=== PATIENT | female | born 1960 | race Caucasian/White ===

== ENCOUNTER 2016-11-22 04:07 | Emergency (ER) | payer BC ==
--- NOTE | ~2016-11-22 | ER ---
PATIENT'S NAME: PRO OLIVER [facility] AGE: 56 Y [address] ROOM: [place] [address] LOCATION: [facility] ADMIT DATE: 11/22/2016 ER/Outpatient Report DISCHARGE DATE: 11/22/2016 FAMILY PHYSICIAN: PHYSICIAN, NO ATTENDING PHYSICIAN: Abhijeet Trujillo Admission date and time documented on the medical record. I saw the patient at 0415 hours. CHIEF COMPLAINT: Left shoulder pain. HISTORY OF PRESENT ILLNESS: This patient is a 56-year-old female, who around 2100 hours last night developed severe pain in her left shoulder. It was anterior, lateral, posterior shoulder radiating up into the trapezius muscle distribution of the neck and the inner aspect of her left scapula. The patient does have a history of fibromyalgia. She does not know what triggered this or stimulated this pain. No sternal or anterior chest pain. No shortness of breath. No diaphoresis. No lightheadedness, dizziness, syncope, or near syncope. No known trauma or fall. No headache or eyes, ears, nose, throat pain. No recent cold, coughs, flus, fever, chills, or sweats. No abdominal pain, nausea, vomiting, or diarrhea. No urinary symptoms. No skin eruptions or rash. No history of neuro changes, psych issues, or endocrine problems. HOME MEDICATIONS: None. ALLERGIES: NONE. SOCIAL HISTORY: Nonsmoker. Occasional intake of alcohol. SIGNIFICANT PAST MEDICAL HISTORY: Fibromyalgia. OPERATIONS: and laparoscopy. REVIEW OF SYSTEMS: All systems reviewed by me are negative with exception of those discussed in the history of the present illness. PHYSICAL EXAMINATION: PATIENT'S NAME: PRO OLIVER [facility] AGE: 56 Y [address] ROOM: [place] [address] LOCATION: [facility] ADMIT DATE: 11/22/2016 ER/Outpatient Report DISCHARGE DATE: 11/22/2016 FAMILY PHYSICIAN: PHYSICIAN, NO ATTENDING PHYSICIAN: Abhijeet Trujillo VITAL SIGNS: Pulse 82 and regular, respirations 18, blood pressure 121/64, O2 saturation on room air is 94%. HEAD: Normocephalic. EYES, EARS, NOSE, THROAT: Clear. Mucous membranes moist. Teeth: Jaw intact. NECK: The patient has some tenderness over the lateral neck involving the trapezius muscle distribution that goes down in the inner aspect of her left scapula. LUNGS: Clear. Good air flow. No rales, rhonchi, or wheezes. HEART: Regular. Pulses palpable. No chest wall or rib cage pain to palpation. ABDOMEN: Soft, nondistended, and nontender. Good bowel tones. No organomegaly or abnormal mass palpable. EXTREMITIES: No peripheral edema or cyanosis. She does have some tenderness on the anterior left shoulder deltoid area and in the posterior scapular area to palpation along with the trapezius muscle distribution. NEUROVASCULAR: Intact. SKIN: Clear. No skin eruptions or rash. LABORATORY DATA: White count was 8500, 59 segs, 33 lymphs, 6 monos, 2 eos; hemoglobin was 12.6; hematocrit 38.3; platelet count was 249,000; PTT was 27; pro-time was 11; and INR of 1. CMS was normal except for an elevated glucose of 135, magnesium was 2, CPK was 98. [id number] cardiac enzymes were normal. EKG showed sinus rhythm. No acute ST elevation, ischemic change, or arrhythmia. Chest x-ray showed no acute infiltrate or changes. We will review x-ray with the radiologist. EMERGENCY DEPARTMENT COURSE: I did give the patient 4 mg of morphine IV and 30 mg of Toradol IV here in the emergency room with some improvement in her pain. IMPRESSION: 1. Left trapezius muscle distribution pain along with anterior, lateral, and posterior shoulder pain, etiology uncertain. 2. Fibromyalgia. PLAN: The patient dismissed home. Observation. ACTIVITY: As tolerated. DISCHARGE INSTRUCTIONS: Warm packs intermittently as needed to sore areas. PATIENT'S NAME: PRO OLIVER [facility] AGE: 56 Y [address] ROOM: [place], [place] [address] LOCATION: [facility] ADMIT DATE: 11/22/2016 ER/Outpatient Report DISCHARGE DATE: 11/22/2016 FAMILY PHYSICIAN: PHYSICIAN, NO ATTENDING PHYSICIAN: Abhijeet Trujillo DISCHARGE MEDICATIONS: Toradol 10 mg 1 every 6 hours x12 doses. Medrol Dosepak, take as directed. Tramadol 50 mg 1 to 2 four times a day as needed for pain #40. FOLLOWUP APPOINTMENTS: Follow up with the personal physician in 3 or 4 days or sooner if needed. Discussion ensued with the patient concerning my findings and recommendations, she understands. MD AKOSUA LAI/nasrinl /[id number] d: 11/22/16 0659 t: 11/22/16 1826, OUTPATIENT REPORT
[2016-11-22 04:35] LABS: BASOPHIL % 0.4 %; EOSINOPHIL # 0.2 K/uL (0.0-0.5); EOSINOPHIL % 2.2 %; HEMATOCRIT 38.3 % (33.0-46.0); HEMOGLOBIN 12.6 g/dL (10.0-15.0); IMMATURE GRANULOCYTE % 0.4 %; LYMPHOCYTE # 2.8 K/uL (0.8-4.0); LYMPHOCYTE % 32.8 %; MCH 29.6 pg (27.0-34.0); MCHC 32.9 gm/dL (32.0-36.5); MCV 89.9 fl (83.0-98.0); MONOCYTE # 0.5 K/uL (0.0-1.0); MONOCYTE % 5.7 %; MPV 9.5 fl (9.4-12.4); NEUTROPHIL % 58.5 %; NRBC % 0 /100WBC (0-0.00); PLATELET COUNT 249 K/uL (150-450); RBC 4.26 M/uL (3.50-5.50); RDW-CV 12.9 % (11.9-14.6); WBC 8.5 K/uL (4.0-11.0)
[2016-11-22 04:45] LABS: PTT 27 SECONDS (25-32)
[2016-11-22 04:54] LABS: ALBUMIN 3.6 gm/dL (3.5-5.0); ALK PHOS 66 IU/L (33-138); ALT 29 IU/L (12-78); ANION GAP 13.7 (10.0-19.0); AST 17 IU/L (10-40); BLOOD UREA NITROGEN 16 mg/dL (6-24); CALCIUM 8.5 mg/dL (8.5-10.5); CHLORIDE 109 mMol/L (96-110); CO2 23 mMol/L (22-32); CPK 98 IU/L (21-215); CREATININE 0.8 mg/dL (0.5-1.1); ESTIMATED GFR (MDRD EQUATION) > 60; POTASSIUM 3.7 mMol/L (3.7-5.1); SODIUM 142 mMol/L (135-145); TOTAL BILIRUBIN 0.3 mg/dL (0.0-1.5); TOTAL PROTEIN 7.1 g/dL (6.0-8.4)
[2016-12-21] MEDS ORDERED: ADVIL200 MG PO (14:07)
[2016-12-21] MEDS ORDERED: LEVOTHROID (SY50 MCG PO (14:27)
== END 2016-11-22 05:55 | disposition disaster alternative care site (69) ==
LOC: GMED 04:07
PROVIDERS: Emergency Medicine
DX: M25.512 Pain in left shoulder (principal); M79.7 Fibromyalgia; Z98.890 Other specified postprocedural states
CPT/HCPCS: J1885; J2270

== ENCOUNTER → 2016-11-27 | Outpatient (CLI) | payer BC ==
[~2016-11-27] MED LIST: ADVIL200 MG PO; LEVOTHROID (SY50 MCG PO
--- NOTE | ~2016-11-27 | ESTC ---
Cardiac Perfusion Imaging Demographics Patient Name MEOLDY Ibrahim Gender Female Patient Number [id number] Race Visit Number [id number] Ethnicity Corporate ID Room Number Accession Number [id number] Height Date of 1960 Weight Age 56 year(s) BSA Referring Physician Suzanne Mcdermott MD BMI Interpreting Suzanne Mcdermott MD Date of study 11/27/2016 Physician Supervising /ASHANTI Morris NM Technologist BIKE MECHANIC Ordering Physician Suzanne Mcdermott MD Stress semiconductor manufacturing technician Stress ECG Reading Beatrice Morris Nurse Tamica Fishman RN Physician BIKE MECHANIC Procedure Procedure Type: Nuclear Stress Test:Exercise, Cardiolite Stress Test Procedure Start time: 11/27/2016 09:00 Indications: Chest pain. Risk Factors The patient risk factors include:former tobacco use. Conclusions Summary Cardiolite SPECT images demonstrates an area of reversible defect involving the mid anterior wall of mild severity. No evidence of underlying fixed defect noted. TID is within normal limits at 1.06 Gated images demonstrate mild anterior wall hypokinesis with overall normal left ventricular systolic function. LVEF is 76% Stress Protocols Resting HR:76 bpm Resting BP:139/60 mmHg Pre-stress physical exam: Patient assessed by Herlinda Barron APRN prior to testing. Stress Protocol:Exercise Peak HR:148 bpm HR response: Appropriate Peak BP:152/88 mmHg BP response: Appropriate Predicted HR: 164 bpm HR/BP product:48665 % of predicted HR: 90 Test duration:07:08 min Reason for termination:Target heart rate Exercise effort:Good Perceived exertion:17 ECG Findings Sinus tachycardia with ST depression II, III, AVF, V5 and V6 Arrhythmias No rhythm abnormality. Symptoms Shortness of breath. Complains of shoulder blade discomfort Stress Interpretation Appropriate hemodynamic response to exercise. No significant ST-T wave changes with exercise. EKG portion is negative for ischemia by diagnostic criteria. The Greebnerg Treadmill score was -2 .This corresponds to a high risk stress test. ST segment back to base line at 3 minutes. Stress supervision and interpretation provided by Jaylyn Barron APRN . Imaging Results Summed scores - Summed stress score: 5 - Summed rest score: 4 - Summed difference score: 1 Stress ejection Ejection fraction:76 % EDV :63 ml ESV :15 ml Stroke volume :48 ml LV mass :107 gr Imaging Protocols Rest Stress Isotope:Tc99m Sestamibi IV Isotope: Tc99m Sestamibi IV Isotope dose:12.6 mCi Isotope dose:36.8 mCi Date:11/27/2016 07:40 Date:11/27/2016 09:35 Technique: SPECT Technique: Gated Supine SPECT Supine Scan Time:45-60 minutes post Scan Time:45-60 minutes post injection injection Medical History Admission Data Admission date: 11/27/2016 Admission Time: 06:46 Hospital Status: Outpatient. Signatures dtt: Baldemar Palacios (cardio) dtd: 11/27/16 09 Physician Self Edit
== END | disposition disaster alternative care site (69) ==
LOC: GRAD 06:46
DX: R07.9 Chest pain, unspecified (principal)
CPT/HCPCS: A9500

== ENCOUNTER 2016-12-28 08:50 | Outpatient (CLI) | payer BC ==
[~2016-12-28] VITALS: Ht 158.8 cm; Wt 87.5 kg
--- NOTE | ~2016-12-28 | CATH ---
Cardiac Diagnostic Report Demographics Patient Name MELODY Ibrahim Gender Female Date of 1960 Age 56 year(s) Patient Number [id number] Date of Study 12/28/2016 Visit Number [id number] Room Number [id number] [place] [id number] Ht 157.48 cm Wt 87.5 kg Referring Vinay Meyer Josefa CANTU Primary Physician Physician Performing Suzanne Mcdermott MD Secondary Physician Physician Diagnostic Suzanne Mcdermott MD Assisting Physician Physician Interventional Physician [place] Conservationist Physician Findings and Conclusions Diagnostic Findings and Conclusion non-obstructive CAD Diagnostic Recommendations Medical therapy Procedure Description The patient was brought to the diagnostic cardiac catheterization-EP laboratory in the fasting, non-sedated state. Informed consent was obtained in the written and verbal form after the risks and benefits were explained. The patient had no further questions and agreed to proceed. The planned puncture-incision site(s) were shaved and prepped with ChloraPrep and draped in the usual sterile manner. Conscious sedation, supplemental oxygen, and pain control medications were delivered by a registered nurse under physician guidance. Surface ECG rhythm, blood pressure measurement, and pulse oximetry were monitored throughout the procedure. Arterial access. The access site was infiltrated with lidocaine. The vessel was entered with the Seldinger technique. A sheath was advanced into the vessel and used for catheter placement. Selective left coronary angiography. A catheter was advanced into the left coronary vessel ostium under Fluoroscopic guidance. Contrast was injected by hand. Images were obtained in multiple projections. Selective right coronary angiography. A catheter was advanced into the right coronary vessel ostium under fluoroscopic guidance. Contrast was injected by hand. Images were obtained in multiple projections. Left heart catheterization. A catheter was advanced across the aortic valve to the left ventricle under fluoroscopic guidance. Resting hemodynamics were obtained. Arterial artery hemostasis was achieved. The patient was transferred to a regular nursing floor via cart accompanied by a nurse. The patient left the laboratory in stable condition. Diagnostic Cath Status: Elective Procedure Procedure Type Diagnostic procedure:Angiography:, Coronary Angios w/[facility] Indications: Palpitations, Abnormal Stress Test and Chest pain. The procedure was explained in detail to the patient. Risks, complications and alternative treatments were reviewed. Written consent was obtained. Medications Reviewed with Patient prior to Procedure. Angiographic Findings Dominance: Mixed Cardiac Arteries and Lesion Findings LMCA: Normal (0% Stenosis).large vessel LAD: Normal (0% Stenosis).medium wnl Diag 1 small ok LCx: Normal (0% Stenosis).dominant, large wnl OM1 small ok OM 2 large wnl RCA: Normal (0% Stenosis).large ok PL medium ok PDA medium ok Procedure Data Procedure Date Date: 12/28/2016Start: 11:51 AMEnd: 12:09 PM Entry Locations - Retrograde Percutaneous access was performed through the Right Femoral artery (Primary location). A 6 Fr sheath was inserted. Hemostasis was successfully obtained using Perclose ProGlide (Saenz). Closure Comments: deployed by Matthieu. Procedure Medications Order and Administration + + + +-------+ !Time !Medication !Dosage !Route ! + + + +-------+ 12/28/2016 11:46 AM !Versed !2 mg !I.V. ! + + + +-------+ 12/28/2016 11:46 AM !Fentanyl !50 mcg !I.V. ! + + + +-------12/28/2016 11:50 AM !Oxygen !4 l/min ! ! + + + +-------+ Devices Used - A6 Fr. BS JL 4 Diag. Catheterwas used for:Left coronary angiography. - A6 Fr. BS JR 4 Diag. Catheterwas used for:Right coronary angiography. - A6 Fr. BS Angled Pigtail Diag. Catheterwas used for:LV Pressures. Contrast Material - Isovue 87115 ml Fluoroscopy Time: Diagnostic: 2:00 minutes. Total: 2:00 minutes. Fluoroscopy Dose: Diagnostic: 500 mGy. Total: 500 mGy. Estimated Blood Loss: 4 ml. Medical History Allergies - Latex. Risk Factors The patient risk factors include:family history of premature CAD, last creatinine: 0.9 mg/dl, creatinine clearance: 96.41 ml/min and former tobacco use. Admission Data Admission Date: 12/28/2016 Admission Time: 08:50 AM Admit Source: Other Insurance Payors: [employer] health insurance. Clinical Evaluation Leading to Procedure - The patient's CAD presentation was assessed as: Unstable angina. - The patient's anginal syndrome during the past two weeks was assessed as: Class III according to the [place]thel Cardiovascular Society Classification System (CCS). [facility] Ventriculography Findings reversible defect involving mid anterior wall LV function assessed as:Abnormal. Ejection Fraction - Method: Radionucleotide. EF%: 74. Hemodynamics Condition: Rest O2 Consumption: Estimated: 191.92Heart Rate: 86 bpm Pressures (mmHg) +-----+ + !Site !Pressure ! +-----+ + !AO !110/59 (82) ! +-----+ + !LV !121/0 ,17 ! +-----+ + !LV !111/3 ,16 ! +-----+ + !AO !113/58 (84) ! +-----+ + !LV !109/2 ,15 ! +-----+ + Valve Gradients and Areas + +---------+---------+---------+ +---------+ + !Valve !Peak !Mean !Area !Index !Flow !Source ! + +---------+---------+---------+ +---------+ + !Aortic !0 !0 ! ! ! ! ! + +---------+---------+---------+ +---------+ + !Aortic !0 !0 ! ! ! ! ! + +---------+---------+---------+ +---------+ + Shunts Oxygen Values O2 Capacity 178.16 O2 Consumption 191.92 Discharge Data Discharge Date: 12/28/2016 Hospital Status: Outpatient Signatures dtt: Baldemar Palacios (cardio) dtd: 12/28/16 1151 Physician Self Edit
== END 2016-12-28 15:39 | disposition disaster alternative care site (69) ==
LOC: GPCU 08:50 → GCAT 08:50
PROC: 4A023N7 Measurement of Cardiac Sampling and Pressure, Left Heart, Percutaneous Approach (ICD-10-PCS; principal; 2016-12-28)
PROC: B216YZZ Fluoroscopy of Right and Left Heart using Other Contrast (ICD-10-PCS; 2016-12-28)
DX: R94.39 Abnormal result of other cardiovascular function study (principal)
CPT/HCPCS: C1760; J1644; J2250; J3010; J7030

== ENCOUNTER 2017-04-13 12:39 | Emergency (ER) | payer BC ==
--- NOTE | ~2017-04-13 | ER ---
PATIENT'S NAME: PRO OLIVER [facility] AGE: 56 Y [address] ROOM: [place] [address] LOCATION: [facility] ADMIT DATE: 04/13/2017 ER/Outpatient Report DISCHARGE DATE: 04/13/2017 FAMILY PHYSICIAN: Mitch Mclean DO ATTENDING PHYSICIAN: Roxanna Grady Time of Arrival: 1239 hours. Time of Evaluation: 1242 hours. CHIEF COMPLAINT: Right foot injury. HISTORY OF PRESENT ILLNESS: This is a 56-year-old female, who presents to the ER, who states 2 hours prior to arrival, she dropped a small step ladder across the top of her foot. She states that she has increased pain since that time. She states her pain is worse when she lifts her foot up in the air after she has walked on it. She states that she did not injure anything else during this incident. She denies any other problems at this time. ALLERGIES: NO KNOWN ALLERGIES. MEDICATIONS: Please see medication list in nurse's notes. PAST MEDICAL HISTORY: Hypothyroidism. PAST SURGICAL HISTORY: None. SOCIAL HISTORY: Drinks alcohol rarely. Denies any smoking use. REVIEW OF SYSTEMS: CONSTITUTIONAL: Denies any change in weight or fatigue. MUSCULOSKELETAL: She is complaining of right foot pain. HEMATOLOGIC: No easy bruising or bleeding. SKIN: No lesions or rashes. PHYSICAL EXAMINATION: VITAL SIGNS: Height 5 feet 2 inches stated, weight 87.1 kg taken, blood pressure is 119/64, pulse 74, respirations 16, temperature 97.8 degrees tympanically, and saturations 95% on room air. [place] Coma Score is 15. PATIENT'S NAME: PRO OLIVER [facility] AGE: 56 Y [address] ROOM: [place], [place] [address] LOCATION: [facility] ADMIT DATE: 04/13/2017 ER/Outpatient Report DISCHARGE DATE: 04/13/2017 FAMILY PHYSICIAN: Mitch Mclean DO ATTENDING PHYSICIAN: Roxanna Grady GENERAL: An alert, calm, well-developed female, in mild distress. EXTREMITIES: No clubbing or cyanosis. I do not appreciate any ecchymosis, swelling, or erythema to her right foot compared to her left. She does have tenderness across her hallux on her right foot as well as across her 2nd, 3rd, and 4th metatarsals. She has good pedal pulses. She has full range of motion in all other limbs. NEUROLOGIC: Cranial nerves 2 through 12 grossly intact. Gait is steady with slight limp. LABORATORY DATA: Labs, none were done. X-RAYS: X-rays of the right foot showed no obvious fracture. IMPRESSION: Right foot injury. ASSESSMENT AND PLAN: We did give the patient reassurance. We will place her on orthotic shoe for support, and we will have her ambulate with crutches. She needs to ice and elevate the foot. Take Tylenol or ibuprofen as needed for pain control, and follow up with her primary care physician if she is not improving. The patient understands and agrees with care. ELISSA AYALA PA-C FOR MD EVARISTO CAMP/mary /[id number] d: 04/13/175 t: 04/21/172040, OUTPATIENT REPORT
== END 2017-04-13 13:47 | disposition disaster alternative care site (69) ==
LOC: GACC 12:39
DX: S99.921A Unspecified injury of right foot, initial encounter (principal); E03.9 Hypothyroidism, unspecified; Z79.899 Other long term (current) drug therapy; W20.8XXA Other cause of strike by thrown, projected or falling object, initial encounter